=== PATIENT | male | born 1930 | race Caucasian/White ===

== ENCOUNTER 2020-08-16 23:25 | Inpatient (IN) | payer OTHER ==
[~2020-08-16] VITALS: Ht 182.9 cm; Wt 82.7 kg
--- NOTE | ~2020-08-16 | EMS ---
[place] [address] EMS Patient Care Report Name: NIKUNJ TAN Room #: 206-P ADM IN M.R.#: [id number] Admission: 08/17/20 Attend Phys: eMlo Chan MD Discharge: Date of : [birth year] Report #: [id number] THIS REPORT FOR: //name// Report Transmitted: 08/18/2020 02:48 EMS Care Summary [place], [place]/[facility] Incident [id number] @ 08/16/2020 22:45 Incident Location [address] [place] [address] Patient NIKUNJ TAN Male, 89 Years 1930 Patient Address [address] [place] [address] Patient History Dementia,Hypertension (HTN),Stroke/CVA,Hyperlipidemia,Type 2 Diabetes, Patient Allergies No known allergies, Patient Medications Tamsulosin, Citalopram, Lisinopril, Clopidogrel, Atorvastatin, Donepezil, Trazodone, Metformin, Chief Complaint Hard to wake up Disposition Transported No Lights/[place] Dispatch Reason Unconscious/Fainting Transported To [facility] Narrative Called for an unconscious, upon arrival, family met us at he door. They reported everything was fine approx 2100 and then when they went to wake the pt up for night meds he was hard to arouse. Pt is awake but a little lethargic. [place] [id number] EMS Patient Care Report Name: NIKUNJ TAN Room #: 206-P ADM IN M.R.#: [id number] Admission: 08/17/20 Attend Phys: Melo Chan MD Discharge: Date of : [birth year] Report #: [id number] Vitals and d-stick obtained. 4 Lead showed sinus alfred. Pt moved to the EMS cot and loaded into the ambulance w/o incident. Vitals repeated. [address] elevation. Pt becoming more responsive, THACKER & JING, follows commands. En route: pt appears to be back to normal, GCS 15. RR to ER. Vitals repeated. Arrived: pt taken to ER #6 and moved to their bed w/o incident. Pt care & report to ER staff. Initial Vitals @23:14P: 41, @23:18P: 41, @22:53P: 29,BP: 176/80,Glucose: 202,SpO2: 97, @23:08P: 47, @23:10P: 60,SpO2: 97, @23:11P: 49,SpO2: 99, @23:12P: 61,Pain: 0/10,GCS: 15,SC Suspected: false @23:13P: 48, @22:57P: 43, @22:55P: 40,CO: 2,SpO2: 97, @23:16P: 47, @23:10P: 47, @23:12P: 39, @23:17P: 48, @23:05P: 52,R: 16,BP: 193/99,Pain: 0/10,GCS: 15,CO: 0,SpO2: 99,Revised Trauma: 12,SC Suspected: false @23:15P: 148,R: 16,BP: 176/91,Pain: 0/10,GCS: 15,Revised Trauma: 12,SC Suspected: false Assessments @22:52MENTAL:Confused,Person Oriented,SKIN:HEENT:LUNG SOUNDS:ABDOMEN:PELVIS//GI:EXTREMITIES:Left Arm: No Abnormalities,Right Arm: No Abnormalities,Left Leg: No Abnormalities,Right Leg: No Abnormalities,PULSE:Radial: 1+ Thready,NEURO:No Abnormalities, Impression Syncope / Fainting Procedures @22:52ALS AssessmentResponse: UnchangedSucceeded@22:553-Lead ECGResponse: UnchangedSucceeded@23:14Saline Lock 8cc (18 ga) Site: Forearm-LeftResponse: UnchangedSucceeded@23:08StretcherResponse: Unchanged@23:1012-Lead ECGResponse: UnchangedFailed@23:1212-Lead ECGResponse: UnchangedSucceeded Timeline 22:43,Call Received 22:43,Dispatch Notified 22:45,Dispatched [address] [address] EMS Patient Care Report Name: NIKUNJ TAN Room #: 206-P ADM IN M.R.#: [id number] Admission: 08/17/20 Attend Phys: Melo Chan MD Discharge: Date of : [birth year] Report #: [id number] 22:45,En Route 22:50,On Scene 22:52,At Patient 22:52,ALS Assessment,Response: UnchangedSucceeded, 22:53,BP: 176/80 M,PULSE: 29,RR: R,SPO2: 97 Ox,ETCO2: ,B,PAIN: ,GCS: , 22:55,3-Lead ECG,Response: UnchangedSucceeded, 22:55,BP: / M,PULSE: 40,RR: R,SPO2: 97 Ox,ETCO2: ,BG: ,PAIN: ,GCS: , 22:57,BP: / M,PULSE: 43,RR: R,SPO2: Ox,ETCO2: ,BG: ,PAIN: ,GCS: , 23:05,BP: 193/99 M,PULSE: 52,RR: 16 R,SPO2: 99 Ox,ETCO2: ,BG: ,PAIN: 0,GCS: 15, 23:08,Stretcher,Response: Unchanged 23:08,BP: / M,PULSE: 47,RR: R,SPO2: Ox,ETCO2: ,BG: ,PAIN: ,GCS: , 23:10,BP: / M,PULSE: 47,RR: R,SPO2: Ox,ETCO2: ,BG: ,PAIN: ,GCS: , 23:10,12-Lead ECG,Response: UnchangedFailed, 23:10,BP: / M,PULSE: 60,RR: R,SPO2: 97 Ox,ETCO2: ,BG: ,PAIN: ,GCS: , 23:11,BP: / M,PULSE: 49,RR: R,SPO2: 99 Ox,ETCO2: ,BG: ,PAIN: ,GCS: , 23:12,12-Lead ECG,Response: UnchangedSucceeded, 23:12,BP: / M,PULSE: 61,RR: R,SPO2: Ox,ETCO2: ,BG: ,PAIN: 0,GCS: 15, 23:12,BP: / M,PULSE: 39,RR: R,SPO2: Ox,ETCO2: ,BG: ,PAIN: ,GCS: , 23:13,BP: / M,PULSE: 48,RR: R,SPO2: Ox,ETCO2: ,BG: ,PAIN: ,GCS: , 23:14,Saline Lock 8cc 18 ga Site: Forearm-Left,Response: UnchangedSucceeded, 23:14,Depart Scene 23:14,BP: / M,PULSE: 41,RR: R,SPO2: Ox,ETCO2: ,BG: ,PAIN: ,GCS: , 23:15,BP: 176/91 M,PULSE: 148,RR: 16 R,SPO2: Ox,ETCO2: ,BG: ,PAIN: 0,GCS: 15, 23:16,BP: / M,PULSE: 47,RR: R,SPO2: Ox,ETCO2: ,BG: ,PAIN: ,GCS: , 23:17,BP: / M,PULSE: 48,RR: R,SPO2: Ox,ETCO2: ,BG: ,PAIN: ,GCS: , 23:18,BP: / M,PULSE: 41,RR: R,SPO2: Ox,ETCO2: ,BG: ,PAIN: ,GCS: , 23:26,At Destination 23:46,Call Closed Disclaimer v1.1 Copyright 2020 [employer] This EMS Care Summary contains data elements from the applicable legal record (which may be displayed differently). It is designed to provide pertinent information for the following purposes: continuity of care, clinical quality, and state data reporting. The complete legal record is available to ED staff and administrators of the receiving hospital in [employer] Patient Tracker. All data is provided "as is."
[2020-08-16 23:26] VITALS: BP 94/58
[2020-08-16] MEDS ORDERED: ARICEPT10 M1 PO (23:40)
[2020-08-16] MEDS ORDERED: GLUCOPHAGE1000 MG PO (23:40)
[2020-08-16] MEDS ORDERED: LIPITOR10 MG PO (23:40)
[2020-08-16] MEDS ORDERED: DESYREL150 MG PO (23:41)
[2020-08-16] MEDS ORDERED: PLAVIX 75 MG TA75 MG PO ×2 (23:41→23:47)
[2020-08-16] MEDS ORDERED: FLOMAX0.4 MG PO ×2 (23:41→23:48)
[2020-08-16] MEDS ORDERED: CELEXA 10 MG TA10 M1 (23:41)
[2020-08-16] MEDS ORDERED: LISINOPRIL10 MG PO (23:42)
[2020-08-16 23:53] LABS: ABSOLUTE NEUTROPHILS 5.7 thou/uL (1.4-8.2); BASOPHILS 0.4 % (0.0-2.0); HEMATOCRIT 36.9 % (42.0-52.0); HEMOGLOBIN 12.1 gm/dL (14.0-18.0); LYMPHOCYTES 33.3 % (24.0-44.0); MCH 27.9 pg (26.0-34.0); MCHC 32.8 g/dL (28.0-37.0); MONOCYTES 8.5 % (1.0-8.0); PLATELET COUNT 235 thou/uL (150-400); POLYS 56.8 % (36.0-66.0); RBC 4.34 mil/uL (4.50-6.00); RDW 14.9 % (10.5-14.5)
[2020-08-16 23:57] LABS: ANION GAP 8 mmol/L (7-16); BUN 24 mg/dL (7-18); CHLORIDE 104 mmol/L (98-107); CO2 29 mmol/L (21-32); CREATININE 1.9 mg/dL (0.7-1.3); GLUCOSE 183 mg/dL (74-106); POTASSIUM 4.9 mmol/L (3.5-5.1); SODIUM 141 mmol/L (136-145)
[2020-08-17 00:07] LABS: ALBUMIN 3.4 g/dL (3.4-5.0); DIRECT BILIRUBIN 0.1 mg/dL (<0.1-0.2); MAGNESIUM 2.5 mg/dL (1.8-2.4); SGOT 13 U/L (15-37); SGPT 14 U/L (30-65); TOTAL BILIRUBIN 0.3 mg/dL (0.2-1.0); TOTAL PROTEIN 7.5 g/dL (6.4-8.2); TROPONIN-I <0.06 ng/mL (<0.06)
[2020-08-17 02:50] LABS: URINE BILIRUBIN NEGATIVE (Negative); URINE BLOOD NEGATIVE (Negative); URINE CLARITY CLEAR; URINE COLOR YELLOW; URINE GLUCOSE-RANDOM* NEGATIVE (Negative); URINE KETONES NEGATIVE (Negative); URINE LEUKOCYTES-REFLEX NEGATIVE (Negative); URINE NITRITE-REFLEX NEGATIVE (Negative); URINE PROTEIN (DIPSTICK) NEGATIVE (Negative); URINE SPECIFIC GRAVITY 1.025 (1.005-1.035); URINE UROBILINOGEN 0.2 E.U./dl (0.2-1.0)
[2020-08-17 04:05] VITALS: BP 158/72
[2020-08-17 04:52] VITALS: BP 141/56
--- NOTE | 2020-08-17 07:29 | NUR ---
PT ADMITTED TO THE FLOOR AROUND 0450, PT IS AWAKE, ALERT AND ORIENTED, ADMISSION ASSESSMENT AND EDUCATION COMPLETED, DENIES PAIN OR SOB, ORDERS ACKNOWLEGED AND IMPLEMENTED, NO DISTRESS NOTED, PASSED ON REPORT TO DAY NURSE
[2020-08-17 07:36] VITALS: BP 148/68
[2020-08-17 07:37] LABS: CHOLESTEROL 103 mg/dL (<200); HDL CHOLESTEROL 41 mg/dL (>40); LDL CHOLESTEROL 47 mg/dL (<100); TC:HDL 2.5 Ratio (Not establshd); TRIGLYCERIDE 78 mg/dL (<150); VLDL 16 mg/dL (<40)
--- NOTE | 2020-08-17 09:25 | EKG ---
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
[2020-08-17 11:49] VITALS: BP 145/53
[2020-08-17 15:53] VITALS: BP 175/67
--- NOTE | 2020-08-17 18:41 | NUR ---
ASSUMED CARE OF PT AT 0700. PT CONFUSED THROUGH OUT DAY, NEEDING MULTIPLE REMINDERS TO USE CALL LIGHT. PT'S SON, DIMAS, AT BEDSIDE THROUGHOUT THE DAY AND ABLE TO ASSIST WITH MAKING PT'S NEEDS KNOWN TO STAFF. PT CONSISTANTLY ANSWERS ORIENTATION QUESTIONS TO SELF AND PLACE CORRECTLY. PLAN TO PERFORM MRI, EEG AND ECHO TOMORROW PER ORDERS. PER REMODELER DR HORAN PT IS NOT REQUIRING IMMEDIATE INTERVENTION GIVEN HIS HERT RHYTHM ON TELE. CONSENTS SIGNED BY SON. SON AND PT INVOLVED IN PLAN OF CARE.
[2020-08-17 21:10] VITALS: BP 149/86
[2020-08-18] VITALS (7 sets, daily range): BP systolic 131–179; BP diastolic 52–93
[2020-08-18 04:53] LABS: CALCIUM 8.2 mg/dL (8.5-10.1); CREATININE 1.4 mg/dL (0.7-1.3)
[2020-08-18 05:05] LABS: GLYCOHEMOGLOBIN (HGB A1C) 6.7 % (4.8-5.6)
[2020-08-18 05:06] LABS: HEMATOCRIT 31.7 % (42.0-52.0); HEMOGLOBIN 10.3 gm/dL (14.0-18.0); MCH 27.5 pg (26.0-34.0); MCHC 32.5 g/dL (28.0-37.0); MCV 84.7 fL (80.0-100.0); RBC 3.74 mil/uL (4.50-6.00); RDW 14.4 % (10.5-14.5); WBC 9.6 thou/uL (4.0-11.0)
--- NOTE | 2020-08-18 12:27 | 2DMMODE ---
[facility] [place] [address] 2 D/M-MODE ECHOCARDIOGRAM Name: NIKUNJ TAN Room #: 206-P ADM IN M.R.#: [id number] Admission: 08/17/20 Attend Phys: Melo Chan MD Discharge: Date of : [birth year] Report #: [id number] THIS REPORT FOR: cc: FAM - Family physician unknown FAM - Family physician unknown Germain Medina MD [facility] ~ APPROVED REPORT Study performed: 08/18/2020 11:24:01 EXAM: Comprehensive 2D, Doppler, and color-flow Echocardiogram Patient Location: Bedside Room #: 206 Status: routine BSA: 2.00 HR: 59 bpm BP: 147/73 mmHg Rhythm: Bradycardia Other Information Study Quality: Technically Difficult Technically limited study due to inability to position patient. Indications Diabetes Bradycardia Hypertension/HDD Aortic Valve AoV Peak Peng.: 1.24 m/s AO Peak Gr.: 6.16 mmHg LVOT Max P.71 mmHg LVOT Max V: 0.96 m/s Left Ventricle The left ventricle is normal size. There is normal LV segmental wall motion. There is normal left ventricular wall thickness. The left ventricular systolic function is normal. The left ventricular ejection fraction is within the normal range. LVEF is 55-60%. This study is not technically sufficient to allow evaluation of the LV diastolic function. Right Ventricle Right ventricle is grossly normal in size. Right ventricular systolic [facility] [address] [place] [address] 2 D/M-MODE ECHOCARDIOGRAM Name: NIKUNJ TAN Room #: 206-P ADM IN M.R.#: [id number] Admission: 08/17/20 Attend Phys: Melo Chan, Discharge: Date of : [birth year] Report #: [id number] function is grossly normal. Atria The left atrium size is normal. The right atrium size is normal. Aortic Valve The aortic valve is normal in structure. No aortic regurgitation is present. There is no aortic valvular stenosis. Mitral Valve The mitral valve is normal in structure. Mild mitral regurgitation. No evidence of mitral valve stenosis. Tricuspid Valve The tricuspid valve is normal in structure. There is no tricuspid valve regurgitation noted. Pulmonic Valve Pulmonic valve is not well visualized. There is no pulmonic valvular regurgitation. Great Vessels Aortic root is not well visualized. IVC is not well visualized. Pericardium There is no pericardial effusion. <Conclusion> Technically difficult study Normal left ventricular size. The wall thickness appears to be normal Ejection fraction 55% Normal right ventricular size/function Normal atrial size Color-flow Doppler study was performed of the aortic/mitral/tricuspid/pulmonary valve Normal aortic valve structure and function Mild mitral valve insufficiency No evidence of tricuspid valve insufficiency No pericardial effusion <ELECTRONICALLY SIGNED> By: Germain Medina MD, FACC 08/18/20 122 122 25 Germain Medina MD, [facility] /INF
--- NOTE | 2020-08-18 17:22 | NUR ---
Patient admits with AMS. Patient tells stories of past events. He is [place]. Son at bedside reports patient resides with him in home. He uses a walker if he can recall to grab walker. 3 falls within 3 years due to getting up from lower surface like couch and commode. Son provide assist with adls as needed. Son primary caregiver. Patient noted on face sheet has no health insurance. Patient has health insurance. Copy of cards and faxed to Elizabeth in business office. Gave information on advance directives. Left message with financial services consultant regarding notorizing AD. Therapy evals in process. [employer] following for dc needs.
--- NOTE | 2020-08-18 17:59 | NUR ---
PT MOVED FROM ROOM 206 TO 202 ON CCU FLOOR D/T PT BEING IMPULSIVE AND GETTING UP WITHOUT ASSISTANCE. PT HAS BEEN EDUCAED ON IMPORTANCE OF USE OF CALL LIGHT. DEMONSTRATED USE OF CALL LIGHT CORRECTLY. ALERT AND ORIENTED X3 PT HAS BEEN DROWSY THOUGHOUT THE SHIFT AND SLEEPING MOST OF THE DAY NIH SCORES NEGATIVE. PT CONT ON ROOM AIR WITH NO DISTRESS NOTED ON THIS SHIFT. PTS SON HAS BEEN BEDSIDE MOST OF THE DAY. NO CONCERNS AT THIS TIME. WILL CONT TO MONITOR, CALL LIGHT IN REACH ALONG WITH REFRESHMENTS.
--- NOTE | 2020-08-19 03:26 | NUR ---
SLEPT PART OF SHIFT. REMAINS ORIENTED TO SELF AND PLACE, REORIENT NEEDED. IMPULSIVE, WHEN NEEDS TO VOID GETS OUT OF BED. FALL PRECAUTIONS IN PLACE, BED ALARM ON. WORKING ON GOALS AND PLAN OF CARE FOR NOC. PROGRESSING TOWARDS DISCHARGE GOALS TO HOME WITH SON. DENIES COMPLAINTS OF PAIN OR SHORTNESS OF AIR. CONTINUE TO ASSES CLOSELY.
[2020-08-19 04:45] VITALS: BP 152/69
[2020-08-19 07:33] VITALS: BP 154/70
[2020-08-19 11:18] VITALS: BP 154/66
[2020-08-19 15:46] VITALS: BP 151/81
--- NOTE | 2020-08-19 18:03 | NUR ---
patient NPO at midnight. patient had son saige at bed side most of the day during visiting hours. iv fluids. eating meals. 1 person assist with gait belt
[2020-08-19 20:15] VITALS: BP 181/84
[2020-08-20] VITALS (7 sets, daily range): BP systolic 114–178; BP diastolic 57–80
--- NOTE | 2020-08-20 11:28 | NUR ---
MET WITH SON AT BEDSIDE. DISCUSSED FATHERS CARE YESTERDAY WELL. PLAN PACEMAKER ON TUESDAY DUE TO NEED TO BE OFF PLAVIX. [employer] FOLLOWING.
--- NOTE | 2020-08-20 12:52 | EEG ---
[facility] [place] [address] ELECTROENCEPHALOGRAM Name: NIKUNJ TAN Room #: 202-P ADM IN M.R.#: [id number] Admission: 08/17/20 Attend Phys: Melo Chan MD Discharge: Date of : [birth year] Report #: [id number] THIS REPORT FOR: //name// DATE OF SERVICE: 08/18/2020 This patient is being evaluated for altered mental status. EEG was done by placing the electrode by standard 10-20 system of electrode placement. Both referential and sequential montages were used for recording. Background activity is difficult to tell because the patient's EEG as well as EKG channel has a lot of muscle and movement artifact. It appeared to be about 7-8 Hz and 15 microvolt. The patient went to sleep that is associated with bilateral slowing and vertex sharp waves. Photic stimulation is unremarkable. Throughout the record, no active epileptiform activity was noticed. IMPRESSION: This patient's EEG is intermixed with theta range slowing on both sides. That is a nonspecific abnormality, which can occur with dementia, encephalopathy, effect of psychotropic medication, etc. Clinical correlation is recommended. <ELECTRONICALLY SIGNED> By: Antonio Swenson MD 08/20/20 1252 0940 [id number] Antonio Swenson MD /nt
--- NOTE | 2020-08-20 15:41 | NUR ---
PT IS AWAKE, ORIENTED TO PERSON, PLACE. PT HAS HX OF DEMENTIA, BUT EASY TO REDIRECT. PT NPO IN MORNING PENDING POSSIBLE PPM, HOWEVER, PROCEDURE MOVED TO 08/21/20. PT HAS URINARY URGENCY AND ATTEMPTS TO GET UP ON OWN TO VOID. PT SON AT BEDSIDE. OBTAINED CONSENT FROM PT/PT SON FOR CONSENT FOR PPM. FALL PRECAUTIONS IN PLACE. POC IS TO MONITOR HR/BP OF PT; PT HAS HX OF SINUS PHILIP. NO CONCERNS AT THIS TIME.
[2020-08-21 05:15] VITALS: BP 154/82
[2020-08-21 07:14] VITALS: BP 136/60
--- NOTE | 2020-08-21 07:46 | NUR ---
UP SEVERAL TIMES TO THE BATHROOM.DENIES PAIN.HEART RATE IN THE 40'S-50'S WITH PVC'S.POC CONTINUED.
[2020-08-21 11:22] VITALS: BP 121/48
--- NOTE | 2020-08-21 19:00 | NUR ---
PATIENT PROGRESSING SLOWLY TOWARDS OUTCOME GOALS. MONITOR OCC SHOWING HEART RATE IN THE 30'S WHEN SLEEPING. SON AT THE BEDSIDE TO DAY. PERMIT FOR PACEMAKER SIGNED. PATIENT NOTED TO PULL ORIGINAL IV OUT AND RESTARTED IT. AMBULATED IN THE HALLS WITH PT USING WALKER.
[2020-08-21 19:34] VITALS: BP 152/61
[2020-08-22] VITALS (13 sets, daily range): BP systolic 129–158; BP diastolic 43–699
--- NOTE | 2020-08-22 03:45 | NUR ---
Assumed pt care at 1900. Pt is alert and confused. Pt is laying in bed and stable. Fall precaution in place. Vital signs stable. No sign of distress noted in pt. Assessment completed and documented. Scheduled medication adminisetered to pt. Tolerated PO intake. Denies any pain. Pt is NPO after midnight for a pacemaker placement in the morning. No acute events overnight. Continue to monitor. No further needs at this time.
[2020-08-22 04:08] LABS: CALCIUM 8.2 mg/dL (8.5-10.1); CREATININE 1.5 mg/dL (0.7-1.3)
[2020-08-22 04:10] LABS: APTT 25.5 Seconds (24.5-32.8); HEMATOCRIT 30.8 % (42.0-52.0); HEMOGLOBIN 10.1 gm/dL (14.0-18.0); MCH 27.8 pg (26.0-34.0); MCHC 32.8 g/dL (28.0-37.0); MCV 84.8 fL (80.0-100.0); PROTIME 10.8 Seconds (9.3-11.4); RBC 3.63 mil/uL (4.50-6.00)
--- NOTE | 2020-08-22 09:55 | NUR ---
PT. AWAITING PACEMAKER INSERTION TODAY AT NOON
--- NOTE | 2020-08-22 09:56 | NUR ---
PT. AWAITING PACEMAKER INSERTION TODAY AT NOON. SON AT BEDSIDE, QUESTION'S ANSWERED. DENIES ANY PAIN AND NO SOB OBSERVED. OCCASIONAL PVC'S OBSERVED . ON ROOM AIR. HE DOES GET UP ON HIS OWN SO FREQUENT REMINDERS TO USE CALL XAVIER ONLY FOR RESTROOM AND ASK FOR HELP WHEN DOING SO.
--- NOTE | 2020-08-22 12:01 | HC ---
[facility] [place] [address] CONSULTATION Name: NIKUNJ TAN Room #: 202-P ADM IN M.R.#: [id number] Admission: 08/17/20 Attend Phys: Melo Chan MD Discharge: Date of : [birth year] Report #: [id number] THIS REPORT FOR: cc: FAM - Family physician unknown FAM - Family physician unknown Augie Jensen MD ~ REASON FOR CONSULTATION: Bradycardia. HISTORY OF PRESENT ILLNESS: The patient is an 89-year-old male with history of dementia, CVA, diabetes, hypertension, depression, who yesterday was in his usual state of health when his son tried to wake him up. He was difficult to arouse. EMS saw the patient reported that he was bradycardic in the 40s. He was brought here for further evaluation. Speaking with the patient, he denies any chest pain or chest tightness. He denies PND or orthopnea. He denies presyncope or syncope. I reviewed his 12-lead EKG, which showed sinus rhythm with a non-conducted premature atrial contraction, but no evidence of heart block. I reviewed his telemetry, which shows some periods of sinus bradycardia, occasionally non-conducted PA-C, occasional PVC with compensatory pause, but no evidence of heart block and no significant pauses. REVIEW OF SYSTEMS: A 12-point review of systems was performed and is negative other than what I mentioned above. PAST MEDICAL HISTORY: As above. SOCIAL HISTORY: Does not smoke. Lives with his family. FAMILY HISTORY: Noncontributory. ALLERGIES: None. MEDICATIONS: Have been reviewed. He is not on any AV meliton blocking agents. PHYSICAL EXAMINATION: VITAL SIGNS: His temperature is 36.9, pulse 93, respiration 17, blood pressure 148/68, sats 96%. GENERAL: He is in no acute distress. He is alert to place and person. He knows who the president is. He does not know what year it is. HEENT: Oropharynx is clear. NECK: Supple, with no thyromegaly. HEART: Regular rate and rhythm with no murmurs, rubs or gallops. LUNGS: Clear to auscultation bilaterally. ABDOMEN: Soft, nontender, nondistended with no hepatosplenomegaly. EXTREMITIES: There is no clubbing, cyanosis or edema. NEUROLOGIC: Cranial nerves 2-[address] [address] CONSULTATION Name: NIKUNJ TAN Room #: 202-P [facility] IN M.R.#: [id number] Admission: 08/17/20 Attend Phys: Meol Chan MD Discharge: Date of : [birth year] Report #: [id number] LABORATORY DATA: CBC demonstrates hemoglobin 12, white count 10, platelets 239. Chemistry shows potassium 4.9, creatinine 1.9. His troponins are negative. His EKG and telemetry is as per above. ASSESSMENT: 1. Bradycardia. 2. Altered mental status. 3. Prior cerebrovascular accident. 4. Diabetes. 5. Hypertension. 6. Depression. 7. Dementia. 8. Chronic renal insufficiency. In summary, an 89-year-old with altered mental status. The patient has some sinus bradycardia, but I do not believe these are the causes of his altered mental status. His heart rate does improve when he is awake. I, therefore, do not believe that further workup of this bradycardia is warranted. He does not meet criteria for pacemaker implantation. We will check an echocardiogram in the morning to ensure preserved ejection fraction. We will continue to follow. <ELECTRONICALLY SIGNED> By: Augie Jensen MD 08/22/20 1201 1027 [id number] Augie Jensen MD /nt
--- NOTE | 2020-08-22 15:17 | NUR ---
Pt getting pacer maker placed this afternoon. Kick Plate Installer visited with his son Emmanuel at bedside and HH recommendations discussed. Son agreeable to hh f/u and notes pt had it in the past 1-2 years but does not recall the agency name. Denies preference or listing. DC logistics planner to [facility] plan and possible start of care 1- 2 days. Pt will need RN, PT, and OT. Son is his caregiver and very attentive. Pt's spouse and other children are also involved and supportive. All parties are anticipating dc to home tomorrow via family car. [facility] will need dc instructions and summary faxed to [phone] and dc and their oncall rn notified at [phone].
--- NOTE | 2020-08-22 17:08 | NUR ---
PT. VOIDED PER URINAL WITH SOME HELP 100ML.
--- NOTE | 2020-08-23 03:30 | NUR ---
Assumed pt care at 1900. Pt is alert and awake but confused. Upon arrival to the room, the arm immobilizer was off from the patient. RN placed immobilizer back on. Pt re-oriented that he needs to leave the arm immobilizer on. Vital signs stable. No sign of distress noted in pt. Assessment completed and documented. Scheduled meds administered to pt. Throughout the night, pt kept taking off arm immobilizer. RN continued to reorient and remind patient that he needed to leave arm immobilizer in place. No acute event overnight. Continue to monitor. No further needs at this time.
[2020-08-23 04:08] VITALS: BP 146/76
[2020-08-23 07:20] VITALS: BP 125/69
[2020-08-23] MEDS ORDERED: KEPPRA750 MG PO (13:04)
[2020-08-23] MEDS ORDERED: METOPROLOL SUCC50 MG PO (13:04)
[2020-08-23] MEDS ORDERED: NAMENDA 5 MG TAB5 M1 PO (13:04)
[2020-08-23] MEDS ORDERED: B-12500 MCG PO (13:04)
[2020-08-23] MEDS ORDERED: GLYBURIDE 5 MG T5 M1 PO (13:04)
[2020-08-23 13:25] VITALS: BP 132/56
--- NOTE | 2020-08-23 14:25 | NUR ---
DISCHARGE INSTRUCTIONS AND PACEMAKER POST INSTRUCTIONS GIVEN TO PT AND THE SON. SON VERBERLISED UNDERSTANDING. PACEMAKER DRESSING C/D/I. LEFT ARM IMMOBILISER INTACT. PT LEFT THE FACILITY ACCOMPANIED BY THE SON WITH ALL HIS BELONGINGS.
--- NOTE | 2020-08-23 14:35 | NUR ---
PT IS AWAKE, ORIENTED TO SELF AND PLACE. PT WAS FRUSTRATED THIS AM, DUE TO ARM IMMOBILIZER. PT IS LEFT HANDED AND UNABLE TO USE ARM DUE TO PLACEMENT OF PPM. PT IS ALSO USED TO TOILETING DUE TO URINARY URGENCY. AFTER BREAKFAST, PT WAS CALM AND COOPERATIVE, NO C/O PAIN, AND RESTING COMFORTABLY IN BED. PT SON AT THE BEDSIDE. CARDIOLOGY CONSULTED. CASE MGMT CONSULTED. DR KELLEY CONSULTED. PT TO GO HOME WITH SON, WITH HOME HEALTH. PT AND PT SON INDICIATED UNDERSTANDING, PT WILL NEED REINFORCEMENT.
--- NOTE | 2020-08-24 14:54 | NUR ---
FAXED DISCHARGE ORDERS/SUMMARY AND RECENT PT,OT,ST THERAPY NOTES TO GWEN AT [facility]. CONFIRMED SHE RECEIVED AND WILL CONTACT FAMILY. [facility] P [phone]; FAX [phone]
--- NOTE | 2020-08-24 18:19 | CATHLAB ---
[facility] [address] [address] INVASIVE PROCEDURE REPORT Name: NIKUNJ TAN Room #: 202-P [facility] IN M.R.#: [id number] Admission: 08/17/20 Attend Phys: Melo Chan MD Discharge: 08/23/20 Date of : [birth year] Report #: [id number] THIS REPORT FOR: cc: FAM - Family physician unknown FAM - Family physician unknown Justin Martinez MD ~ APPROVED REPORT Study performed: 08/22/2020 13:08:27 Event Personnel: Justin Martinez MD Exam: Insertion of Dual Chamber Permanent Pacemaker Indications: Sick sinus syndrome with tachybradycardia episodes The patient is a 89 year-old male with a history of Atrial tachyarrhythmias and profound bradycardia. Conscious Sedation Fentanyl 25.0 mcg Versed 4.0 mg Implanted Devices: Medtronic Kimberley Soler Model # [id number]; Use By 10-22-2021; Serial # [id number] RA Lead Medtronic 5076 45cm; Serial # [id number]; Use By 06-11-2022 RV Lead Medtronic 5076 52cm; Serial # [id number]; Use By 06-06-2022 Procedure The patient underwent informed consent. We discussed the details of the procedure including the risks, which include, but not limited to bleeding, infection, vascular damage, cardiac perforation, and pneumothorax. He understood these risks and was willing to proceed. As such, he was brought to the EP/Cardiac Catheterization laboratory in a fasting and sedated state and prepped and draped in a The patient underwent conscious sedation, with no related complications. The patient was brought to the EP/Cardiac Catheterization laboratory and the left chest and shoulder were prepped and draped in a sterile manner. During this case, Fluoroscopy and no contrast were used for imaging. The left subclavian region was infiltrated with 2% Lidocaine subcutaneous anesthesia. A transverse incision was made in the left upper chest cavity. [facility] [address] [place] [address] INVASIVE PROCEDURE REPORT Name: NIKUNJ TAN Room #: 202-P DIS IN .R.#: [id number] Admission: 08/17/20 Attend Phys: Melo Chan, Discharge: 08/23/20 Date of : [birth year] Report #: [id number] The subcutaneous pocket was formed via blunt dissection. Percutaneous venous access was achieved and an introducer sheath was inserted into the left Subclavian vein. Sheaths were positions using the modified Seldinger technique Through the introducer sheaths the atrial and ventricular lead wires were positioned in the right atrial appendage and right ventricular apex respectively. Capturing and sensing thresholds were verified. Electrode Parameters Results are noted above Dual Chamber The atrial and ventricular leads were then secured using 2-0 nonabsorbable sutures. The subcutaneous pocket was irrigated with ancef antibiotic solution.The atrial and ventricular leads were attached to the appropriate receptacles on the pulse generator and set screws firmly tightened to insure adequate contact and stability. The lead and pulse generator were placed into the subcutaneous pocket. Sharp and sponge counts were confirmed to be correct. At this time the pocket was closed subcutaneously with a 2-0 nonabsorbable suture in a running locking stitch for 2 subcutaneously layers and the skin was closed with a 3.0 Vicryl utilizing subcuticular stitch. The operative site was dressed in sterile fashion with Steri-Strips 4 x 4 OpSite and the patient was transferred to the floor in stable condition. Complications The patient tolerated the procedure well and there were no complications associated with the procedure. Findings Specimens Removed: N/A Estimated Blood Loss: 10 cc Conclusion 1. Successful implantation of dual-chamber pacemaker with right atrial lead in the right atrial appendage and left ventricular lead in the left mid anteroseptum wall [facility] [address] [place] [address] INVASIVE PROCEDURE REPORT Name: NIKUNJ TAN Room #: 202-P [facility] IN .R.#: [id number] Admission: 08/17/20 Attend Phys: Melo Chan, Discharge: 08/23/20 Date of : [birth year] Report #: [id number] Recommendations 1. Routine post pacemaker insertion protocol <ELECTRONICALLY SIGNED> By: Justin Martinez MD 08/24/201818 18 18 Justin Martinez MD /INF
== END 2020-08-23 14:38 | disposition home health service (06) | DRG 242 ==
LOC: ER 23:25 → 2N 08-17 03:36 → EROBS 08-17 03:36 → 2N 08-17 04:35
PROVIDERS: Emergency Medicine; Internal Medicine; Nurse Practitioner Family; ADMIT Internal Medicine; ATTEND Internal Medicine
DX: I49.5 Sick sinus syndrome (principal); G93.41 Metabolic encephalopathy; N17.0 Acute kidney failure with tubular necrosis; I44.1 Atrioventricular block, second degree; F03.90 Unspecified dementia, unspecified severity, without behavioral disturbance, psychotic disturbance, mood disturbance, and anxiety; F32.9 Major depressive disorder, single episode, unspecified; E78.5 Hyperlipidemia, unspecified; E11.65 Type 2 diabetes mellitus with hyperglycemia; I12.9 Hypertensive chronic kidney disease with stage 1 through stage 4 chronic kidney disease, or unspecified chronic kidney disease; N18.9 Chronic kidney disease, unspecified; N40.0 Benign prostatic hyperplasia without lower urinary tract symptoms; E86.0 Dehydration; E11.22 Type 2 diabetes mellitus with diabetic chronic kidney disease; G47.00 Insomnia, unspecified; E53.8 Deficiency of other specified B group vitamins; Z86.73 Personal history of transient ischemic attack (TIA), and cerebral infarction without residual deficits; Z79.84 Long term (current) use of oral hypoglycemic drugs; Z79.899 Other long term (current) drug therapy; Z79.01 Long term (current) use of anticoagulants; Z85.828 Personal history of other malignant neoplasm of skin
CPT/HCPCS: 10081

== ENCOUNTER 2021-08-15 09:06 | Inpatient (IN) | payer OTHER ==
[2021-08-15] VITALS (7 sets, daily range): BP systolic 102–127; BP diastolic 50–73
[~2021-08-15] VITALS: Ht 152.4 cm; Wt 88.2 kg
--- NOTE | ~2021-08-15 | EMS ---
[place] [address] EMS Patient Care Report Name: NIKUNJ TAN Room #: 436-P ADM IN M.R.#: [id number] Admission: 08/15/21 Attend Phys: Ja Mack, Discharge: Date of : [birth year] Report #: [id number] THIS REPORT FOR: //name// Report Transmitted: 08/15/2021 19:55 EMS Care Summary [place], [place]/[facility] Incident [id number] @ 08/15/2021 08:26 Incident Location [address] [place] [address] Patient NIKUNJ BLAND Male, 89 Years 1930 Patient Address [address] [place] [address] Patient History Hypertension (HTN),Pacemaker/AICD,Stroke/CVA,Hyperlipidemia,Type 2 Diabetes, Patient Allergies Morphine, Patient Medications Metoprolol, Citalopram, Tamsulosin, Glyburide, Memantine, Atorvastatin, Donepezil, Chief Complaint Fall, swelling around hip Disposition Transported No Lights/[place] Dispatch Reason Falls Transported To [facility] Narrative Called for a fall. Upon arrival, pt son met us at the door. He stated his Dad fell last week and yesterday he started to have swelling in the right hip area. No change in LOC. Pt moved to the EMS cot and loaded into the ambulance w/o [place] [id number] EMS Patient Care Report Name: NIKUNJ TAN Room #: 436-P ADM IN M.R.#: [id number] Admission: 08/15/21 Attend Phys: Ja Mack, Discharge: Date of : [birth year] Report #: [id number] incident. Vitals obtained. IV SL. D-stick. Vitals repeated. En route: no significant changes. RR to the ER. Arrived: pt taken to ER #8 and moved to their bed w/o incident. Pt care & report to ER staff. Initial Vitals @08:54P: 67, @08:54P: 68,CO: 0,SpO2: 96, @08:48P: 33,CO: 2,SpO2: 94, @08:43P: 64,R: 16,BP: 124/69,Pain: 0/10,GCS: 12,CO: 1,SpO2: 96,Revised Trauma: 11, @08:54P: 65,R: 16,BP: 115/70,Pain: 0/10,GCS: 12,Glucose: 217,SpO2: 94,Revised Trauma: 11,OR Suspected: false Assessments @08:34MENTAL:Person Oriented,Confused,SKIN:HEENT:Head/Face: No Abnormalities,LUNG SOUNDS:ABDOMEN:PELVIS//GI:Pelvis Other,EXTREMITIES:Right Leg: SANDRA,Right Leg: Other,Left Arm: No Abnormalities,Right Arm: No Abnormalities,Left Leg: No Abnormalities,PULSE:NEURO:No Abnormalities, Impression Injury of Hip Procedures @08:34 ALS Assessment Response: UnchangedSucceeded @08:49 Stretcher Response: Unchanged @08:54 IV Therapy - Saline Lock 8cc (18 ga) Site: Forearm-Left Response: UnchangedSucceeded Timeline 08:22,Call Received 08:22,Dispatch Notified 08:26,Dispatched 08:27,En Route 08:32,On Scene 08:34,At Patient 08:34,ALS Assessment,Response: UnchangedSucceeded, 08:43,BP: 124/69 M,PULSE: 64,RR: 16 R,SPO2: 96 Ox,ETCO2: ,BG: ,PAIN: 0,GCS: 12, 08:48,BP: / M,PULSE: 33,RR: R,SPO2: 94 Ox,ETCO2: ,BG: ,PAIN: ,GCS: , 08:49,Stretcher,Response: Unchanged 08:54,IV Therapy - Saline Lock 8cc 18 ga Site: Forearm-Left,Response: UnchangedSucceeded, 08:54,BP: / M,PULSE: 68,RR: R,SPO2: 96 Ox,ETCO2: ,BG: ,PAIN: ,GCS: , 08:54,BP: / M,PULSE: 67,RR: R,SPO2: Ox,ETCO2: ,BG: ,PAIN: ,GCS: , 08:54,BP: 115/70 M,PULSE: 65,RR: 16 R,SPO2: 94 Ox,ETCO2: ,B,PAIN: 0,GCS: 12, [facility] [address] [place] [address] EMS Patient Care Report Name: NIKUNJ TAN Room #: 436-P ADM IN M.R.#: [id number] Admission: 08/15/21 Attend Phys: Ja Mack, Discharge: Date of : [birth year] Report #: [id number] 08:57,Depart Scene 09:02,At Destination 09:21,Call Closed Disclaimer v1.1 Copyright 2021 [employer] This EMS Care Summary contains data elements from the applicable legal record (which may be displayed differently). It is designed to provide pertinent information for the following purposes: continuity of care, clinical quality, and state data reporting. The complete legal record is available to ED staff and administrators of the receiving hospital in [employer] Patient Tracker. All data is provided "as is."
--- NOTE | ~2021-08-15 | EMS ---
[place] [address] EMS Patient Care Report Name: NIKUNJ TAN Room #: 436-P ADM IN M.R.#: [id number] Admission: 08/15/21 Attend Phys: Ja Mack, Discharge: Date of : [birth year] Report #: [id number] THIS REPORT FOR: //name// Report Transmitted: 08/15/2021 20:56 EMS Care Summary [place], [place]/[facility] Incident [id number] @ 08/15/2021 08:26 Incident [address] [place] [address] Patient NIKUNJ BLAND Male, 89 Years 1930 Patient Address [address] [place] [address] Patient History Hypertension (HTN),Pacemaker/AICD,Stroke/CVA,Hyperlipidemia,Type 2 Diabetes, Patient Allergies Morphine, Patient Medications Metoprolol, Citalopram, Tamsulosin, Glyburide, Memantine, Atorvastatin, Donepezil, Chief Complaint Fall, swelling around hip Disposition Transported No Lights/[place] Dispatch Reason Falls Transported To [facility] Narrative Called for a fall. Upon arrival, pt son met us at the door. He stated his Dad fell last week and yesterday he started to have swelling in the right hip area. No change in LOC. Pt moved to the EMS cot and loaded into the ambulance w/o [place] [id number] EMS Patient Care Report Name: NIKUNJ TAN Room #: 436-P ADM IN M.R.#: [id number] Admission: 08/15/21 Attend Phys: Ja Mack, Discharge: Date of : [birth year] Report #: [id number] incident. Vitals obtained. IV SL. D-stick. Vitals repeated. En route: no significant changes. RR to the ER. Arrived: pt taken to ER #8 and moved to their bed w/o incident. Pt care & report to ER staff. Initial Vitals @08:54P: 67, @08:54P: 68,CO: 0,SpO2: 96, @08:48P: 33,CO: 2,SpO2: 94, @08:43P: 64,R: 16,BP: 124/69,Pain: 0/10,GCS: 12,CO: 1,SpO2: 96,Revised Trauma: 11, @08:54P: 65,R: 16,BP: 115/70,Pain: 0/10,GCS: 12,Glucose: 217,SpO2: 94,Revised Trauma: 11,CO Suspected: false Assessments @08:34MENTAL:Person Oriented,Confused,SKIN:HEENT:Head/Face: No Abnormalities,LUNG SOUNDS:ABDOMEN:PELVIS//GI:Pelvis Other,EXTREMITIES:Right Leg: SANDRA,Right Leg: Other,Left Arm: No Abnormalities,Right Arm: No Abnormalities,Left Leg: No Abnormalities,PULSE:NEURO:No Abnormalities, Impression Injury of Hip Procedures @08:34 ALS Assessment Response: UnchangedSucceeded @08:49 Stretcher Response: Unchanged @08:54 IV Therapy - Saline Lock 8cc (18 ga) Site: Forearm-Left Response: UnchangedSucceeded Timeline 08:22,Call Received 08:22,Dispatch Notified 08:26,Dispatched 08:27,En Route 08:32,On Scene 08:34,At Patient 08:34,ALS Assessment,Response: UnchangedSucceeded, 08:43,BP: 124/69 M,PULSE: 64,RR: 16 R,SPO2: 96 Ox,ETCO2: ,BG: ,PAIN: 0,GCS: 12, 08:48,BP: / M,PULSE: 33,RR: R,SPO2: 94 Ox,ETCO2: ,BG: ,PAIN: ,GCS: , 08:49,Stretcher,Response: Unchanged 08:54,IV Therapy - Saline Lock 8cc 18 ga Site: Forearm-Left,Response: UnchangedSucceeded, 08:54,BP: / M,PULSE: 68,RR: R,SPO2: 96 Ox,ETCO2: ,BG: ,PAIN: ,GCS: , 08:54,BP: / M,PULSE: 67,RR: R,SPO2: Ox,ETCO2: ,BG: ,PAIN: ,GCS: , 08:54,BP: 115/70 M,PULSE: 65,RR: 16 R,SPO2: 94 Ox,ETCO2: ,B,PAIN: 0,GCS: 12, [facility] [address] [place] [address] EMS Patient Care Report Name: NIKUNJ TAN Room #: 436-P ADM IN M.R.#: [id number] Admission: 08/15/21 Attend Phys: Ja Mack, Discharge: Date of : [birth year] Report #: [id number] 08:57,Depart Scene 09:02,At Destination 09:21,Call Closed Disclaimer v1.1 Copyright 2021 [employer] This EMS Care Summary contains data elements from the applicable legal record (which may be displayed differently). It is designed to provide pertinent information for the following purposes: continuity of care, clinical quality, and state data reporting. The complete legal record is available to ED staff and administrators of the receiving hospital in [employer] Patient Tracker. All data is provided "as is."
--- NOTE | ~2021-08-15 | HC ---
[facility] [place] [address] CONSULTATION Name: NIKUNJ TAN Room #: 436-P ADM IN M.R.#: [id number] Admission: 08/15/21 Attend Phys: Ja Mack, Discharge: Date of : [birth year] Report #: [id number] THIS REPORT FOR: cc: FAM - Family physician unknown FAM - Family physician unknown Ronnell Conklin MD ~ ORTHOPEDIC CONSULTATION CHIEF COMPLAINT: Left hip pain. HISTORY OF PRESENT ILLNESS: The patient is a pleasant 89-year-old gentleman seen today for evaluation of his right hip. He is here with his son and [id number]. The patient resides with his son and 2 weeks ago, he slipped from the toilet and fell. The patient's son is the primary history child care giver and he reports that he had some pain initially, but then noticed no swelling or bruising. The patient was able to stand and bear weight. He ambulates minimally in the home with a walker and they have been able to provide all of his self care as usual. Tuesday, they noted more swelling about the proximal aspect of the leg and hip and they had brought him in for further evaluation. He has a history of a CVA approximately 10 years ago, underlying dementia and diabetes. PAST MEDICAL HISTORY: Significant for dementia, diabetes, hard of hearing, CVA, right lower extremity DVT. PAST SURGICAL HISTORY: IVC placement. ALLERGIES: MORPHINE. CURRENT MEDICATIONS: Include heparin. Please see MAR for all medicines. PHYSICAL EXAMINATION: VITAL SIGNS: Current temperature 36.3, pulse 61, respirations 18, BP 104/59, 90% on room air. GENERAL: The patient is resting comfortably. He is hard of hearing. The son provides all the history. PELVIC: Stable to AP and lateral compression. EXTREMITIES: He has mild swelling about the hip, lies in an externally rotated and flexed position of approximately 20 degrees. He appears to be nontender about the knee, leg, foot and ankle. Compartments are soft. NEUROLOGIC: Limited due to him sleeping and the family were requesting that he be allowed to sleep further. DIAGNOSTIC STUDIES: Radiographs reveal a three-part intertrochanteric femur fracture with more of a basicervical pattern. Mild displacement is noted. [address] [address] CONSULTATION Name: NIKUNJ TAN Room #: 436-P [facility] IN .R.#: [id number] Admission: 08/15/21 Attend Phys: aJ Mack, Discharge: Date of : [birth year] Report #: [id number] IMPRESSION: 1. Right hip pain, status post fall, three-part intertrochanteric femur fracture. 2. Dementia. 3. Underlying medical comorbidities including diabetes, deep vein thrombosis with recent IVC placement. PLAN: The patient has a very pleasant family. We discussed treatment options in detail. He has received his IVC filter placement. We have gone over the risks, benefits, alternatives and potential complications of his injury and treatment. He was a minimal household ambulator prior to his injury and they would like to proceed with an intramedullary nailing of his right hip when deemed medically stable. In discussing with the hospitalist, they feel comfortable tonight stopping his heparin for surgery tomorrow. This will likely be performed by one of my partners due to OR availability. The patient and his family are comfortable in proceeding in this manner. Questions were encouraged, all were answered. By: [id number] Ronnell Conklin MD /nt
[~2021-08-15 09:06] MED LIST: ARICEPT10 M1 PO; B-12500 MCG PO; CELEXA 10 MG TA10 M1; CRESTOR10 MG PO; DESYREL150 MG PO; FLOMAX0.4 MG PO; GLUCOPHAGE1000 MG PO; GLYBURIDE 5 MG T5 M1 PO; KEPPRA750 MG PO; LISINOPRIL10 MG PO; METOPROLOL SUCC50 MG PO; NAMENDA 5 MG TAB5 M1 PO; PLAVIX 75 MG TA75 MG PO
[2021-08-15 09:27] LABS: URINE BILIRUBIN NEGATIVE (Negative); URINE BLOOD NEGATIVE (Negative); URINE CLARITY CLEAR; URINE COLOR YELLOW; URINE GLUCOSE-RANDOM* NEGATIVE (Negative); URINE KETONES NEGATIVE (Negative); URINE LEUKOCYTES-REFLEX NEGATIVE (Negative); URINE NITRITE-REFLEX NEGATIVE (Negative); URINE PROTEIN (DIPSTICK) NEGATIVE (Negative); URINE SPECIFIC GRAVITY 1.025 (1.005-1.035); URINE UROBILINOGEN 0.2 E.U./dl (0.2-1.0)
[2021-08-15 09:34] LABS: ABSOLUTE NEUTROPHILS 11.4 thou/uL (1.4-8.2); BASOPHILS 0.3 % (0.0-2.0); EOSINOPHILS 0.7 % (0.0-3.0); HEMATOCRIT 33.5 % (42.0-52.0); HEMOGLOBIN 10.6 gm/dL (14.0-18.0); LYMPHOCYTES 14.9 % (24.0-44.0); MCH 27.1 pg (26.0-34.0); MCHC 31.5 g/dL (28.0-37.0); MCV 86.1 fL (80.0-100.0); PLATELET COUNT 318 thou/uL (150-400); POLYS 74.1 % (36.0-66.0); WBC 15.3 thou/uL (4.0-11.0)
[2021-08-15 09:52] LABS: HEMATOCRIT 32.9 % (42.0-52.0); HEMOGLOBIN 10.5 gm/dL (14.0-18.0); MCH 27.1 pg (26.0-34.0); MCHC 31.8 g/dL (28.0-37.0); MCV 85.3 fL (80.0-100.0); RBC 3.86 mil/uL (4.50-6.00); RDW 14.7 % (10.5-14.5); WBC 14.4 thou/uL (4.0-11.0)
[2021-08-15 10:02] LABS: ALBUMIN 2.2 g/dL (3.4-5.0); CALCIUM 8.6 mg/dL (8.5-10.1); CREATININE 1.8 mg/dL (0.7-1.3); TOTAL BILIRUBIN 0.7 mg/dL (0.2-1.0); TOTAL PROTEIN 6.7 g/dL (6.4-8.2)
[2021-08-15 10:05] LABS: INR 1.07; PROTIME 11.6 Seconds (10.5-12.1)
[2021-08-15 10:19] LABS: MAGNESIUM 2.6 mg/dL (1.8-2.4); PHOSPHORUS 4.4 mg/dL (2.6-4.7); SALICYLATE 2.7 mg/dL (2.8-20.0)
[2021-08-15 10:23] LABS: POTASSIUM 5.1 mmol/L (3.5-5.1)
[2021-08-15 13:40] LABS: ALBUMIN 2.4 g/dL (3.4-5.0); TOTAL PROTEIN 6.2 g/dL (6.4-8.2)
[2021-08-15] MEDS ORDERED: NAMENDA 5 MG TAB5 M1 PO (14:03)
[2021-08-15] MEDS ORDERED: CELEXA 10 MG TA10 M1 PO (14:04)
[2021-08-15] MEDS ORDERED: LEVEMIR FL100 UNIT/2 SUBQ (14:05)
[2021-08-16 00:13] VITALS: BP 101/55
[2021-08-16 01:22] LABS: AMP/METHAMP Negative (Negative); BARBITURATES Negative (Negative); BENZODIAZEPINES Negative (Negative); COCAINE Negative (Negative); METHADONE Negative (Negative); OPIATES Negative (Negative); PCP Negative (Negative)
[2021-08-16 02:10] LABS: HEMATOCRIT 29.5 % (42.0-52.0); HEMOGLOBIN 9.4 gm/dL (14.0-18.0); MCH 27.2 pg (26.0-34.0); MCHC 31.7 g/dL (28.0-37.0); MCV 85.9 fL (80.0-100.0); RBC 3.43 mil/uL (4.50-6.00); RDW 14.5 % (10.5-14.5); WBC 16.6 thou/uL (4.0-11.0)
[2021-08-16 02:14] LABS: CALCIUM 8.2 mg/dL (8.5-10.1); CREATININE 1.8 mg/dL (0.7-1.3); MAGNESIUM 2.3 mg/dL (1.8-2.4); POTASSIUM 4.9 mmol/L (3.5-5.1)
[2021-08-16 05:28] VITALS: BP 124/50
[2021-08-16 07:29] VITALS: BP 104/59
[2021-08-16 17:30] VITALS: BP 121/65
[2021-08-16 20:04] VITALS: BP 102/40
[2021-08-17 06:17] LABS: HEMATOCRIT 25.5 % (42.0-52.0); HEMOGLOBIN 8.2 gm/dL (14.0-18.0); MCH 27.2 pg (26.0-34.0); MCHC 32.1 g/dL (28.0-37.0); MCV 84.7 fL (80.0-100.0); RBC 3.01 mil/uL (4.50-6.00); RDW 14.6 % (10.5-14.5); WBC 13.7 thou/uL (4.0-11.0)
[2021-08-17 06:39] LABS: CALCIUM 7.4 mg/dL (8.5-10.1); CREATININE 1.5 mg/dL (0.7-1.3); MAGNESIUM 2.3 mg/dL (1.8-2.4); POTASSIUM 4.3 mmol/L (3.5-5.1)
--- NOTE | 2021-08-17 07:36 | EKG ---
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 TORRES : 1930 Requested By: Koby Cullen Order Number: [id number] MD: Germain Medina Measurements Intervals [place] Rate: 74 P: MT: 223 QRS: -11 QRSD: 123 T: 83 QT: 431 QTc: 479 Interpretive Statements Atrial-paced complexes Ventricular premature complex Prolonged MT interval Nonspecific intraventricular conduction delay Inferolateral infarct, age indeterminate Compared to ECG 08/16/2020 23:34:11 Ventricular premature complex(es) now present First degree AV block now present Intraventricular conduction delay now present Myocardial infarct finding now present Sinus rhythm no longer present Electronically Signed On 08-17-2021 7:36:11 PHYSICS TECHNICAL OFFICER by Germain Medina [email or web address] <ELECTRONICALLY SIGNED> By: Germain Medina MD, FACC 08/17/21 0736 3 3 Germain Medina MD, FAC /EPI
[2021-08-17 08:25] VITALS: BP 123/31
[2021-08-17 16:00] VITALS: BP 105/40
[2021-08-17 19:49] VITALS: BP 120/66
[2021-08-18 04:08] LABS: HEMATOCRIT 25.2 % (42.0-52.0); MCH 27.1 pg (26.0-34.0); MCHC 31.9 g/dL (28.0-37.0); MCV 85.1 fL (80.0-100.0); RBC 2.96 mil/uL (4.50-6.00); RDW 14.6 % (10.5-14.5); WBC 11.2 thou/uL (4.0-11.0)
[2021-08-18 04:15] LABS: CALCIUM 7.5 mg/dL (8.5-10.1); CREATININE 1.5 mg/dL (0.7-1.3); MAGNESIUM 2.3 mg/dL (1.8-2.4)
[2021-08-18 07:28] VITALS: BP 107/63
[2021-08-18 10:45] VITALS: BP 116/50
[2021-08-18 15:07] LABS: URINE BILIRUBIN NEGATIVE (Negative); URINE BLOOD 3+ (Negative); URINE CLARITY CLEAR; URINE COLOR YELLOW; URINE GLUCOSE-RANDOM* NEGATIVE (Negative); URINE KETONES TRACE (Negative); URINE NITRITE-REFLEX NEGATIVE (Negative); URINE PROTEIN (DIPSTICK) TRACE (Negative); URINE SPECIFIC GRAVITY >= 1.030 (1.005-1.035); URINE UROBILINOGEN 0.2 E.U./dl (0.2-1.0)
[2021-08-18 15:09] LABS: URINE LEUKOCYTES-REFLEX 1+ (Negative)
[2021-08-18 15:18] LABS: CASTS None Seen /LPF (None Seen); SQUAMOUS None Seen /LPF (0-3); URIC ACID CRYSTALS >10 Many /LPF (None Seen); URINE WBC-REFLEX 0-5 Rare /HPF (0-5)
[2021-08-18 15:19] LABS: URINE RBC >20 Many /HPF (NONE SEEN)
[2021-08-18 15:49] VITALS: BP 118/56
[2021-08-18 21:01] VITALS: BP 136/77
[2021-08-19 06:19] LABS: HEMATOCRIT 23.7 % (42.0-52.0); HEMOGLOBIN 7.7 gm/dL (14.0-18.0); MCH 27.5 pg (26.0-34.0); MCHC 32.6 g/dL (28.0-37.0); MCV 84.3 fL (80.0-100.0); RBC 2.81 mil/uL (4.50-6.00); RDW 14.8 % (10.5-14.5); WBC 13.9 thou/uL (4.0-11.0)
[2021-08-19 06:40] LABS: CALCIUM 7.8 mg/dL (8.5-10.1); CREATININE 1.2 mg/dL (0.7-1.3); MAGNESIUM 2.3 mg/dL (1.8-2.4)
[2021-08-19 06:53] LABS: POTASSIUM 4.5 mmol/L (3.5-5.1)
[2021-08-19 08:44] VITALS: BP 116/56
[2021-08-19 15:22] VITALS: BP 115/69
[2021-08-19 19:35] VITALS: BP 105/47
[2021-08-20 04:03] VITALS: BP 124/58
[2021-08-20 05:28] LABS: HEMATOCRIT 28.5 % (42.0-52.0); HEMOGLOBIN 8.5 gm/dL (14.0-18.0); MCH 27.4 pg (26.0-34.0); MCHC 29.7 g/dL (28.0-37.0); RBC 3.1 mil/uL (4.50-6.00); RDW 15.9 % (10.5-14.5); WBC 10.3 thou/uL (4.0-11.0)
[2021-08-20 05:56] LABS: CALCIUM 7.8 mg/dL (8.5-10.1); CREATININE 1.2 mg/dL (0.7-1.3); POTASSIUM 4.6 mmol/L (3.5-5.1)
[2021-08-20 07:18] VITALS: BP 113/58
[2021-08-20 15:36] VITALS: BP 110/55
[2021-08-20 19:47] VITALS: BP 117/45
[2021-08-21 04:51] VITALS: BP 127/68
[2021-08-21 05:43] LABS: CALCIUM 7.3 mg/dL (8.5-10.1); CREATININE 1.1 mg/dL (0.7-1.3); POTASSIUM 4.5 mmol/L (3.5-5.1)
[2021-08-21 06:19] LABS: HEMATOCRIT 25.8 % (42.0-52.0); HEMOGLOBIN 8.4 gm/dL (14.0-18.0); MCH 27.6 pg (26.0-34.0); MCHC 32.5 g/dL (28.0-37.0); RBC 3.04 mil/uL (4.50-6.00); WBC 13.8 thou/uL (4.0-11.0)
[2021-08-21 06:23] LABS: MCV 85.1 fL (80.0-100.0)
[2021-08-21 07:26] VITALS: BP 109/59
[2021-08-21 16:00] VITALS: BP 120/60
[2021-08-21 22:54] VITALS: BP 118/65
[2021-08-21 22:55] VITALS: BP 118/65
[2021-08-22 08:20] VITALS: BP 128/37
[2021-08-22 19:27] VITALS: BP 102/51
[2021-08-23 06:49] LABS: HEMATOCRIT 25.3 % (42.0-52.0); HEMOGLOBIN 8.3 gm/dL (14.0-18.0); MCH 27.7 pg (26.0-34.0); MCHC 32.8 g/dL (28.0-37.0); MCV 84.4 fL (80.0-100.0); RDW 15.3 % (10.5-14.5); WBC 14.9 thou/uL (4.0-11.0)
[2021-08-23 07:04] LABS: CALCIUM 7.9 mg/dL (8.5-10.1); CREATININE 1.2 mg/dL (0.7-1.3); POTASSIUM 4.7 mmol/L (3.5-5.1)
[2021-08-23 07:24] VITALS: BP 122/55
[2021-08-23 15:24] VITALS: BP 123/64
[2021-08-23 19:33] VITALS: BP 116/60
[2021-08-24 08:36] VITALS: BP 111/50
[2021-08-24 19:43] VITALS: BP 98/53
--- NOTE | 2021-08-26 10:44 | O ---
[facility] [address] OPERATIVE REPORT Name: NIKUNJ TAN Room #: 436-P [facility] IN M.R.#: [id number] Admission: 08/15/21 Attend Phys: Ja Mack, Discharge: 08/25/21 Date of : [birth year] Report #: [id number] THIS REPORT FOR: cc: FAM - Family physician unknown FAM - Family physician unknown Anatoly Molina MD ~ DATE OF SERVICE: 08/15/2021 PREOPERATIVE DIAGNOSIS: Right 2-part intertrochanteric hip fracture. POSTOPERATIVE DIAGNOSIS: Right 2-part intertrochanteric hip fracture. PROCEDURE: Treatment of right intertrochanteric hip fracture with IM nail. SURGEON: Anatoly Molina MD THREAD SPINNER: Ashley Nicole PA-C INDICATION FOR THREAD SPINNER: Throughout the case, extensive retraction and manipulation of the hip was required. This was afforded to me by my client services assistant. ANESTHESIA: General. IMPLANTS: [employer] size 11.5 short InterTAN nail with a size 110 lag screw and a size 105 compression screw and a size 40 distal locking screw. ESTIMATED BLOOD LOSS: 50 mL. COMPLICATIONS: None. SPECIMENS: None. CONDITION UPON LEAVING THE OR: Stable. INDICATIONS FOR PROCEDURE: The patient is an 89-year-old gentleman who fell between 1 and 2 weeks ago. It is unclear as to how long ago his actual fall was. He has had progressive pain and swelling in his right thigh and his family brought him and he was found to have a 2-part intertrochanteric hip fracture. After discussion with he and his son, they elected for treatment with an IM nail. DESCRIPTION OF PROCEDURE: Risks, benefits, alternatives, complications were discussed in detail with the patient including, but not limited to risk of anesthesia, risk of damage to nerves, arteries, blood vessels, risk for infection, bleeding, risk for continued hip pain, malunion, nonunion, and need for reoperation. Informed consent was obtained from the patient's son. [address] [address] OPERATIVE REPORT Name: NIKUNJ TAN Room #: 436-P [facility] IN M.R.#: [id number] Admission: 08/15/21 Attend Phys: Ja Mack, Discharge: 08/25/21 Date of : [birth year] Report #: [id number] hip was appropriately marked in the preoperative holding area. IV Ancef was given for preoperative antibiotics. He was brought to the operating room and general anesthesia was induced without complication. He was transferred to the [place] table. Right lower extremity was placed in traction. Left lower extremity was scissored. Fluoroscopic imaging was brought in to verify adequate fracture reduction and adequate images could be obtained as was the case. Right hip was then prepped and draped in normal sterile fashion. Timeout was performed, properly identifying the patient and procedure as well as the instrumentation and implants. All in the operating room were in agreement. A 2-inch incision proximal to the greater trochanter was made with 10 blade through the skin. Dissection was taken down sharply through the fascia and a threaded tip guidewire was placed on the tip of the greater trochanter. Fluoroscopic imaging was brought in to verify adequate starting portal with the threaded tip guidewire. The anterior portal reamer was used to ream an anterior portal and an 11.5 short InterTAN nail was placed down into the medullary canal of the femur. This was seated to the appropriate level. The guide for the compression and lag screw was then placed. Incision was made with 10 blade through the skin and IT band. Guide was placed down on to the lateral femur and threaded tip guidewire was taken up into the femoral head and verified to be in the center-center position under AP and lateral imaging. This was measured and we decided to use a 110 lag screw and a 105 compression screw. The tunnel for the compression screw was drilled and the derotation device was placed in the tunnel for the compression. For the lag screw, it was drilled and a 110 mm lag screw was placed up into the femoral head. Compression screw was placed and 5 mm of compression was gained across the fracture site. This was locked from above and 1 distal locking screw was then placed in the dynamic slot using the drill guide, this was 40 mm in length. After this, the outrigger guide was removed from the nail. Final fluoroscopic images were taken to verify adequate fracture reduction as well as placement of hardware. Wounds were thoroughly irrigated with normal saline, closed with 2-0 Vicryl and skin kj, a waterproof dressing was applied. The patient tolerated this procedure well and went to recovery room under care of Anesthesia postoperatively. <ELECTRONICALLY SIGNED> By: Anatoly Molina MD 08/26/21 1044 [id number] Anatoly Molina MD /nt
== END 2021-08-25 | disposition home health service (06) | DRG 480 ==
LOC: ER 09:06 → EROBS 12:16 → 4S 12:16
PROVIDERS: Emergency Medicine; Hospitalist; Internal Medicine; ADMIT Surgery; ATTEND Surgery
PROC: 0QS634Z Reposition Right Upper Femur with Internal Fixation Device, Percutaneous Approach (ICD-10-PCS; principal; 2021-08-15)
PROC: 06H03DZ Insertion of Intraluminal Device into Inferior Vena Cava, Percutaneous Approach (ICD-10-PCS; principal; 2021-08-15)
DX: S72.141A Displaced intertrochanteric fracture of right femur, initial encounter for closed fracture (principal); N17.0 Acute kidney failure with tubular necrosis; I26.99 Other pulmonary embolism without acute cor pulmonale; G93.40 Encephalopathy, unspecified; I82.411 Acute embolism and thrombosis of right femoral vein; I82.431 Acute embolism and thrombosis of right popliteal vein; I82.441 Acute embolism and thrombosis of right tibial vein; R31.9 Hematuria, unspecified; D64.9 Anemia, unspecified; F03.90 Unspecified dementia, unspecified severity, without behavioral disturbance, psychotic disturbance, mood disturbance, and anxiety; D72.829 Elevated white blood cell count, unspecified; E78.00 Pure hypercholesterolemia, unspecified; I12.9 Hypertensive chronic kidney disease with stage 1 through stage 4 chronic kidney disease, or unspecified chronic kidney disease; N40.0 Benign prostatic hyperplasia without lower urinary tract symptoms; R53.81 Other malaise; K86.9 Disease of pancreas, unspecified; E11.22 Type 2 diabetes mellitus with diabetic chronic kidney disease; N18.9 Chronic kidney disease, unspecified; Z20.822 Contact with and (suspected) exposure to COVID-19; Z86.73 Personal history of transient ischemic attack (TIA), and cerebral infarction without residual deficits; Z95.0 Presence of cardiac pacemaker; Z88.6 Allergy status to analgesic agent; W18.39XA Other fall on same level, initial encounter; Y93.89 Activity, other specified; Y92.89 Other specified places as the place of occurrence of the external cause; Y99.8 Other external cause status
CPT/HCPCS: 10100; 10102; 50010; 50101; 50386; 51412; 51538; 52304; 56524; 57092; 57499; 57502; 57507; 59210; 62110; 62900; 70005